=== PATIENT | female | born 1980 | race Caucasian/White ===

== ENCOUNTER 2020-02-26 18:54 | Emergency (ER) | payer SELFPAY ==
[2020-02-26 19:00] VITALS: BP 143/99
--- NOTE | 2020-02-26 19:27 | Event Note ---
ED Screening Note ED Screening Note: Patient is a 39-year-old female who presents emergency room with complaints of lower abdominal pain that began today. She states it feels like contractions. She states that she has heavy vaginal bleeding and had 3 episodes of passing large clots. She states initially she was having to change every 15 minutes but it has now slowed down to every hour. She had a suction D&C performed 4 days ago in [place]. She states that she is here for work. She states that she was 10 weeks 6 days. She states her last menstrual cycle was in November. No past medical history. No allergies to medications. This initial assessment/diagnostic orders/clinical plan/treatment(s) is/are subject to change based on patients health status, clinical progression and re- assessment by fellow clinical providers in the ED. Further treatment and workup at subsequent clinical providers discretion. Patient/guardian urged not to elope from the ED as their condition may be serious if not clinically assessed and managed. Initial orders include: Labs UA Ultrasound
[2020-02-26 19:39] LABS: Basophils # (Auto) 0.1 K/mm3 (0.0-0.1); Basophils % (Auto) 0.9 % (0.0-1.8); Eosinophils # (Auto) 0.2 K/mm3 (0.0-0.4); Eosinophils % (Auto) 1.3 % (0.0-4.3); Hematocrit 33.3 % (30.3-42.9); Hemoglobin 11.5 gm/dl (10.1-14.3); Lymphocytes # (Auto) 4.5 K/mm3 (1.2-5.4); Lymphocytes % (Auto) 36.5 % (13.4-35.0); Mean Corpuscular HGB Conc 35 % (30-34); Mean Corpuscular Volume 87 fl (79-97); Monocytes # (Auto) 0.9 K/mm3 (0.0-0.8); Monocytes % (Auto) 7.3 % (0.0-7.3); Platelet Count 286 K/mm3 (140-440); Red Blood Count 3.82 M/mm3 (3.65-5.03); Red Cell Distribution Width 14.6 % (13.2-15.2)
--- NOTE | 2020-02-26 20:37 | Ultrasound Report ---
ULTRASOUND PELVIS INDICATION / CLINICAL INFORMATION: abd pain, heavy bleeding, 4 days ago. TECHNIQUE: Transabdominal. Duplex Color Doppler used: Yes. COMPARISON: None available FINDINGS: UTERUS: 10.5 x 7.0 x 7.6 cm. Satisfactory sonographic appearance. Endometrial thickness is 12 mm in t his premenopausal female. RIGHT ADNEXA: No significant ovarian cyst or mass. Subcentimeter follicle. Normal color Doppler blood flow. LEFT ADNEXA: Not visualized on today's examination. URINARY BLADDER: No significant abnormality. FREE FLUID: None. ADDITIONAL FINDINGS: None. IMPRESSION: 1. No significant abnormality. Signer Name: Ravi Blake MD Signed: 02/26/2020 8:32 PM Workstation Name: [id number]
[2020-02-26 20:41] LABS: Bilirubin,Urine NEG (Negative); Blood,Urine LG (Negative); Color,Urine Red (Yellow); Urobilinogen,Urine < 2.0 mg/dL (<2.0)
[2020-02-26 20:42] LABS: RBC,Urine > 182.0 /HPF (0.0-6.0); WBC,Urine > 182.0 /HPF (0.0-6.0)
== END 2020-02-26 22:00 | disposition left against medical advice (07) ==
LOC: ED 18:54
DX: N93.9 Abnormal uterine and vaginal bleeding, unspecified (principal); Z53.21 Procedure and treatment not carried out due to patient leaving prior to being seen by health care provider
CPT/HCPCS: 36415; 76856; 81001; 84702; 85025; 86900; 86901